=== PATIENT | female | born 1960 | race African-American/Black ===

== ENCOUNTER 2017-01-11 09:47 | Outpatient (CLI) | payer BC ==
--- NOTE | 2017-01-11 10:35 | MMO ---
BILATERAL SCREENING MAMMOGRAMS: Date: 01/11/17 This is a baseline study. This patient's mammogram was interpreted with the assistance of computer-aided detection. FINDINGS: Scattered fibroglandular densities. No evidence of mass, distortion, or suspicious calcification. Rec ommend one year follow-up. IMPRESSION: BIRADS 1: Negative POS: [facility]
== END 2017-01-11 09:48 | disposition home or self-care (01) ==
LOC: SCSMAMMO 09:47
PROVIDERS: ATTEND Family Medicine
DX: Z12.31 Encounter for screening mammogram for malignant neoplasm of breast (principal)
CPT/HCPCS: 77067; G0202

== ENCOUNTER 2017-08-16 14:39 | Outpatient (CLI) | payer BC, OTHER ==
--- NOTE | 2017-08-16 15:49 | ULT ---
ULTRASOUND WITH DOPPLER DUPLEX VENOUS LOWER EXTREMITY LEFT: HISTORY: 56-year-old female with left lower extremity pain. TECHNIQUE: Color flow Doppler, spectral waveform analysis of pulsed Doppler, and dunham-scale imaging with jaskaran raoul and augmentation, were used to evaluate the left common femoral, femoral, popliteal, posterior t ibial, and superficial femoral, veins; and the proximal portions of the profunda femoral and greater saphenous, veins. FINDINGS: There is normal compressibility, demonstration of blood flow by color Doppler and pulsed Doppler, and response to augmentation, in all interrogated veins. IMPRESSION: Negative. No deep vein thrombosis in the left lower extremity. hemal POS: [facility]
--- NOTE | 2017-08-16 16:12 | RAD ---
LEFT KNEE FOUR VIEWS: Date: 08-16-17 History: Pain in the left knee. FINDINGS/IMPRESSION: Minimal degenerative change is present. No fracture, dislocation, or bony destruction is identified. POS: [facility]
== END 2017-08-16 14:40 | disposition home or self-care (01) ==
LOC: ULT 14:39
PROVIDERS: ATTEND Family Medicine
DX: M79.605 Pain in left leg (principal); M17.12 Unilateral primary osteoarthritis, left knee

== ENCOUNTER 2022-08-21 09:09 | Emergency (ER) | payer BC, SELFPAY ==
[2022-08-21 10:18] LABS: Bacteria/HPF None Seen HPF (None Seen); Bilirubin Negative (Negative); Blood, Urine Negative (Negative); CAUTI Indications for Culture Dysuria,urgency,freq; Clarity Clear (Clear); Glucose, Urine (Dipstick) 50 mg/dL (Negative); Ketone, Urine Negative (Negative); Leukocyte Negative Leu/uL (Negative); Nitrite Negative (Negative); Protein, Urine (Dipstick) 10 mg/dL (Neg-Trace); RBC/HPF 0-3 HPF (0-3); Specific Gravity, Urine 1.009 (1.002-1.036); Squamous Epithelial 0-3 HPF (0-3); Urobilinogen Normal mg/dL (Less than 2); WBC/HPF 0-3 HPF (0-3); pH, Urine 7.5 (5.0-9.0)
[2022-08-21 10:20] LABS: Urine Culture Reflex No No
[2022-08-21] MEDS ORDERED: Acetaminophen 500 MG TAB ONE (10:24)
[2022-08-21 10:52] LABS: #Basophils 0.1 thou/uL (0.0-0.2); #Monocytes 0.7 thou/uL (0.11-0.59); #Neutrophils 10.9 thou/uL (1.40-6.50); %Basophils 0.4 % (0.0-1.0); %Eosinophils 0.1 % (0.0-10.0); %Lymphocytes 15.5 % (21.0-51.0); %Monocytes 4.7 % (0.0-10.0); %Neutrophils 78.8 % (42.0-75.0); Hemoglobin 13.9 g/dL (12.0-16.0); Mean Corpuscular HGB CONC 32.6 g/dL (32.0-36.0); Mean Corpuscular Hemoglobin 25.6 pg (27.0-31.0); Mean Corpuscular Volume 78.8 fl (78.0-98.0); Mean Platelet Volume 9.8 fL (7.4-10.4); Platelet Count 341 10x3/uL (130-400); RBC Distribution Width 14.8 % (11.5-14.5); Red Blood Cell (RBC) Count 5.42 mill/uL (4.20-5.40); White Blood Cell (WBC) Count 13.8 10x3/uL (4.8-10.8)
[2022-08-21] MEDS ORDERED: hydrALAZINE 20 MG/ML VIAL ONE (11:08)
[2022-08-21 11:14] LABS: ALT (SGPT) 9 U/L (8-55); AST (SGOT) 11 U/L (5-34); Albumin 3.8 g/dL (3.5-5.0); Alkaline Phosphatase 98 U/L (40-110); Anion Gap 15 mmol/L (10-20); BUN (Urea Nitrogen) 10 mg/dL (9.8-20.1); Bilirubin, Total 0.3 mg/dL (0.2-1.2); CK (CPK) 60 U/L (29-168); Calc. Creatinine Clearance 0 mL/min (70-130); Calcium 8.8 mg/dL (7.8-10.44); Carbon Dioxide 24 mmol/L (22-29); Chloride 106 mmol/L (98-107); Estimated GFR 101; Globulin 3.1 g/dL (2.4-3.5); Glucose 190 mg/dL (70-105); Lipase 23 U/L (8-78); Potassium 3.4 mmol/L (3.5-5.1); Protein, Total 6.9 g/dL (6.0-8.3); Sodium 142 mmol/L (136-145)
== END 2022-08-21 11:43 | disposition home or self-care (01) ==
LOC: ERS 09:09
DX: I16.0 Hypertensive urgency (principal); E11.9 Type 2 diabetes mellitus without complications; I10 Essential (primary) hypertension; Z79.84 Long term (current) use of oral hypoglycemic drugs
CPT/HCPCS: 36415; 36416; 70450; 71045; 80053; 81001; 82550; 83690; 84484; 85025; 93005; 96361; 96374; J0360

== ENCOUNTER 2023-03-14 08:34 | Outpatient (CLI) | payer MEDICARE | END 2023-03-14 08:35 | disposition home or self-care (01) | LOC: BICRAD 08:34 | PROVIDERS: ATTEND Family Medicine | DX: M25.551 Pain in right hip (principal); M25.561 Pain in right knee; M16.11 Unilateral primary osteoarthritis, right hip; M47.816 Spondylosis without myelopathy or radiculopathy, lumbar region | CPT/HCPCS: 72100 ==